=== PATIENT | female | born 1980 | race Caucasian/White ===

== ENCOUNTER → 2019-11-06 08:27 | Outpatient (CLI) | payer BC, SELFPAY ==
--- NOTE | ~2019-11-06 | CT_ITS ---
EXAMINATION: CT abdomen pelvis w con INDICATION: Generalized abdominal pain, history of follicular lymphoma TECHNIQUE: Computed tomographic images of the abdomen and pelvis were obtained after the administrati on of 100 cc of Omnipaque 350 intravenous contrast. The dose-length product (DLP) was 1158.55 mGy-cm. Automated exposure control and iterative reconstruction technique were employed. COMPARISON: None available FINDINGS: Minimal dependent atelectasis is present in the lung bases. The heart size is normal. The l iver is diffusely low in attenuation when compared with the spleen, consistent with hepatic steatosis . The gallbladder is surgically absent. The spleen, pancreas, and adrenal glands are normal. The kidn eys are unremarkable. No pathologically enlarged abdominal or pelvic lymph nodes are identified. Ther e is no free intraperitoneal gas or evidence of bowel obstruction. There are changes of appendectomy. IMPRESSION: 1. No CT correlate for the patient's symptoms. Reviewed, dictated and finalized at location [facility]
== END ==
PROVIDERS: PCP Pediatrics; Visit Provider Pediatrics
DX: R10.84 Generalized abdominal pain (principal)
CPT/HCPCS: 74177; Q9967

== ENCOUNTER 2020-01-20 05:38 | Outpatient (CLI) | payer BC, SELFPAY ==
[2020-01-20 15:31] LABS: SARS-CoV-2 RNA PCR Negative
== END 2020-01-20 05:39 | disposition home or self-care (01) ==
LOC: ANHCOVIDDT 05:39
PROVIDERS: PCP Pediatrics; Visit Provider Internal Medicine Gastroenterology
DX: Z01.818 Encounter for other preprocedural examination (principal); Z11.59 Encounter for screening for other viral diseases
CPT/HCPCS: 87635; C9803; U0003

== ENCOUNTER 2020-01-22 01:06 | Day surgery (SDC) | payer BC, SELFPAY ==
[2020-01-17 12:56] VITALS: BMI 41.4
[2020-01-22 06:53] VITALS: BMI 40.6
[2020-01-22 06:57] VITALS: BP 145/86; PULSE 89; RESP 16; TEMP 36.3; O2SAT 94
[2020-01-22] MEDS: LACTATED RINGERS 1,000 ML 150 ML IV CONT (07:12)
--- NOTE | 2020-01-22 07:55 | P.PNAN_ITS ---
Anes - Initial Pre Proc Eval Procedure: Operation Date: 01/22/20 08:00 Proposed Procedures p Colonoscopy - Benjamín Purdy MD Date/Time: 01/22/20 07:55 Surgeon: Benjamín Purdy MD Pre Op Diagnosis: change in bowel habits, abd pain Patient Data Age: 39 Gender: F Height: 5 ft 7 in Weight: 117.5 kg Last Vital Signs Temp 36.3 C L 01/22/20 06:57 Pulse 89 01/22/20 06:57 Resp 16 01/22/20 06:57 BP 145/86 H 01/22/20 06:57 Pulse Ox 94 01/22/20 06:57 Allergies Allergy/AdvReac Type Severity Reaction Status Date / Time No Known Allergies Allergy Verified 01/22/20 06:49 Home Medications Medication Instructions Recorded Confirmed Type medroxyprogesterone 150 mg IM [id number] 01/17/20 01/17/20 History pantoprazole 40 mg PO DAILY 01/17/20 01/22/20 History hyoscyamine sulfate [Levsin/SL] 0.125 mg SUBLINGUAL PRN 01/22/20 01/22/20 History Patient hx anesthesia problems: none Family hx anesthesia problems: none [facility] Past Medical History Medical History (Updated 01/22/20 @ 07:55 by Garrett Saul MD) Lymphoma in remission Morbid obesity Surgical History Surgical History (Updated 01/22/20 @ 07:55 by Garrett Saul MD) History of appendectomy History of cholecystectomy Anes - Eval Final PreProcedure Day of Procedure 01/22/20 07:55 Patient weight: morbidly obese Heart: regular rate and rhythm Lungs: clear to auscultation Airway: Mallampati scale class 1 Neurological: alert and oriented Last oral intake: >/= 8 hours ASA classification: III Emergent: no Anesthetic plan: proceed Anesthesia type and monitoring: general GIVS and standard monitoring Informed Consent: The patient's anesthetic plan and its attendant risks and benefits were discussed with the patient/family/POA. Questions were solicited and answers provided to the satisfaction of the patient/family/POA.
--- NOTE | 2020-01-22 08:02 | WPDGICN ---
Assessment and Plan Assessment and plan (1) Encounter for diagnostic colonoscopy due to change in bowel habits: Code(s): R19.4 - Change in bowel habit Status: Acute Assessment and Plan: Colonoscopy to be performed because recent change in bowel habits concern is because of her history lymphoma. Plan is for patient to continue FiberCon daily MiraLax as needed. further recommendations will be given after endoscopy. (2) Constipation: Code(s): K59.00 - Constipation, unspecified Status: Acute (3) Lymphoma in remission: Code(s): C85.90 - Non-Hodgkin lymphoma, unspecified, unspecified site Status: Acute GI Consult Note Consult date/time: 01/22/20 08:02 HPI: Prudence Allison is a 39 year old female Seen in evaluation at the request of Dr. Mcdaniel. patient has complaints of abdominal pain. Constipation. This has been a significant change in her bowel habits. Her past medical history is significant for lymphoma felt to be in remission because of change in bowel habits and worsening symptoms a colonoscopy is Requested. patient's current medications include oral contraceptives and Protonix. Bowel habits have begun to improve on taking FiberCon b.i.d. and MiraLax as needed. She denies any blood in her stools. Her weight has remained stable. Review of Systems Review of Systems: All systems reviewed & are unremarkable except as noted in HPI and below PMFSH Past Medical History Medical History Lymphoma in remission Morbid obesity Surgical History Surgical History History of appendectomy History of cholecystectomy Meds Home Medications and Allergies Home Medications Medication Instructions Recorded Confirmed Type medroxyprogesterone 150 mg IM [id number] 01/17/20 01/17/20 History pantoprazole 40 mg PO DAILY 01/17/20 01/22/20 History hyoscyamine sulfate [Levsin/SL] 0.125 mg SUBLINGUAL PRN 01/22/20 01/22/20 History Allergies Allergy/AdvReac Type Severity Reaction Status Date / Time No Known Allergies Allergy Verified 01/22/20 06:49 Vital Signs Vital Signs - 24 hr 01/22/20 06:57 Temperature 36.3 C L Pulse Rate 89 Respiratory Rate 16 Blood Pressure 145/86 H Pulse Oximetry 94 Exam Narrative: Exam Narrative: Physical exam reveals Vital Signs to be stable. HEENT exam unremarkable. She is anicteric. Lungs are clear to auscultation and percussion. Heart is without murmur or extra sounds. Abdominal exam bowel sounds are present soft nontender with no hepatosplenomegaly. Digital external rectal exam is normal.
[2020-01-22 08:32] VITALS: BP 142/91; PULSE 96; RESP 29; O2SAT 94
[2020-01-22 08:42] VITALS: BP 132/69; PULSE 100; RESP 21; O2SAT 99
[2020-01-22 08:52] VITALS: BP 132/81; PULSE 76; RESP 24; O2SAT 99
== END 2020-01-22 09:03 | disposition home or self-care (01) ==
PROVIDERS: PCP Pediatrics; Visit Provider Internal Medicine Gastroenterology
PROC: 0DJD8ZZ Inspection of Lower Intestinal Tract, Via Natural or Artificial Opening Endoscopic (ICD-10-PCS; CPT 45378; principal; 2020-01-22 08:00)
DX: K59.00 Constipation, unspecified (principal); K64.8 Other hemorrhoids; Z85.72 Personal history of non-Hodgkin lymphomas; E66.01 Morbid (severe) obesity due to excess calories; Z68.41 Body mass index [BMI] 40.0-44.9, adult
CPT/HCPCS: 45378; J2704; J7120